=== PATIENT | female | born 1965 | race Caucasian/White ===

== ENCOUNTER 2021-01-07 14:41 | Outpatient (CLI) | payer OTHER | END 2021-01-07 14:42 | disposition home or self-care (01) | LOC: CSHMAMMO 14:41 | PROVIDERS: ATTEND Internal Medicine | DX: Z12.31 Encounter for screening mammogram for malignant neoplasm of breast (principal) | CPT/HCPCS: 77063; 77067 ==

== ENCOUNTER 2022-09-15 11:11 | Outpatient (CLI) | payer OTHER | END 2022-09-15 11:12 | disposition home or self-care (01) | LOC: CSHMAMMO 11:11 | PROVIDERS: ATTEND Internal Medicine | DX: Z12.31 Encounter for screening mammogram for malignant neoplasm of breast (principal); Z98.82 Breast implant status | CPT/HCPCS: 77063; 77067 ==